=== PATIENT | female | born 1970 | race Caucasian/White ===

== ENCOUNTER 2019-04-11 09:17 | Outpatient (CLI) | payer OTHER | END 2019-04-11 16:00 | disposition home or self-care (01) | LOC: MRD 09:17 → EDSTATUS 04-15 08:50 | PROVIDERS: ATTEND Surgery | DX: Z01.818 Encounter for other preprocedural examination (principal); K43.9 Ventral hernia without obstruction or gangrene | CPT/HCPCS: 71045; 93005 ==